=== PATIENT | male | born 1950 | race Caucasian/White ===

== ENCOUNTER 2018-12-29 19:19 | Emergency (ER) | payer MEDICARE ==
[2018-12-29] MEDS ORDERED: Adacel (T-DAP) 0.5 ML SYRINGE ONE (19:26)
[2018-12-29] MEDS ORDERED: Lidocaine 2% 20 ml MDV ONE (19:32)
== END 2018-12-29 20:10 | disposition home or self-care (01) ==
LOC: MADERS 19:19
DX: S60.450A Superficial foreign body of right index finger, initial encounter (principal); W45.8XXA Other foreign body or object entering through skin, initial encounter
CPT/HCPCS: 10120; 90471; 90715; J2001